=== PATIENT | female | born 1990 | race Caucasian/White ===

== ENCOUNTER 2023-05-26 21:35 | Emergency (ER) | payer SELFPAY ==
[2023-05-26 21:38] VITALS: BP 132/99; PULSE 121; RESP 20; TEMP 36.8; O2SAT 100; BMI 38.0
[2023-05-26 22:00] VITALS: BP 134/90; PULSE 110; O2SAT 99
[2023-05-26 22:30] VITALS: BP 140/86; PULSE 104; O2SAT 98
--- NOTE | 2023-05-26 22:50 | PC.NURSE ---
Dr. Joyner in room
[2023-05-26 22:57] VITALS: PULSE 95
--- NOTE | 2023-05-26 22:57 | XR_ITS ---
PROCEDURE INFORMATION: Exam: XR Chest Exam date and time: 05/26/2023 11:22 PM Age: 32 years old Clinical indication: Sternal or substernal pain; Additional info: Chest pain TECHNIQUE: Imaging protocol: Radiologic exam of the chest. Views: 1 view. COMPARISON: No relevant prior studies available. FINDINGS: Lungs: Unremarkable. No consolidation. Pleural spaces: Unremarkable. No pleural effusion. No pneumothorax. Heart/Mediastinum: Unremarkable. No cardiomegaly. Bones/joints: Unremarkable. IMPRESSION: No acute findings.
--- NOTE | 2023-05-26 22:57 | [facility].EDGENADL ---
Discharge Plan Disposition Patient Disposition: Home, Self-Care Referrals Follow up/Referrals: Provider,Referral, [Primary Care Provider] - See instructions Activity Restrictions/Add. Instructions Additional Instructions/Restrictions: Please follow-up with your primary care provider. Please return to the emergency department if you develop any new or worsening symptoms or become concerned for your health. Clinical Impressions Clinical Impression: Chest pain, Marijuana use Discharge ED Provider: Ra Joyner General Adult HPI <Ra Joyner MD - Last Filed: 05/26/23 23:09> General Chief complaint: Allergic Reaction Stated complaint: numbness, tingling Time Seen by Provider: 05/26/23 22:00 Mode of Arrival: Ambulatory Source of Information: Patient Limitations: No Limitations Description of Symptoms (Recalled from ER Triage Doc. by RN): pt states she smokes a joint from a stranger today at 1530 at 1800 tonight pt began to feel tingling all over and has a knot on left hand. RN notes no obvious rash or deformities. pt states she is worried it was laced with something. pt is in no obvious distress and vitals are WNL History of Present Illness HPI narrative: Patient is a 32-year-old female with no pertinent past medical history who presents to the emergency department for evaluation of substance ingestion and chest tightness. History is obtained by patient at bedside. Late this afternoon patient smoked marijuana which was obtained by an unknown individual, she is worried it is laced with something as she developed a transient rash over her hand and a knot in her left hand as well as chest tightness and substernal chest pain. She looked in her symptoms online and is worried that it may be laced with bug spray. No other acute complaints at this time. Related Data Allergies Allergy/AdvReac Type Severity Reaction Status Date / Time No Known Allergies Allergy Verified 05/26/23 22:58 PFSH <Ra Joyner MD - Last Filed: 05/26/23 23:09> [facility] Disclaimer: The information contained in this section may have been updated after the patient was seen, as this information can be updated by other users. Social History (Updated 05/26/23 @ 23:09 by Ra Joyner MD) Smoking Status: Current every day smoker alcohol intake: never current occupational status: other Travel in the last 8 weeks: None <Ra Joyner MD - Last Filed: 05/26/23 23:09> ROS Obtained: Yes Systems reviewed as appropriate & no additional complaints except as documented Physical Exam <Ra Joyner MD - Last Filed: 05/26/23 23:09> General General appearance: alert and in no apparent distress Head Head exam: atraumatic and normocephalic Eye Eye exam: Present PERRL and EOMI ENT ENT exam: Present mucous membranes moist Neck Neck exam: Present normal inspection Chest Chest inspection: Present normal inspection and symmetric chest wall rise Respiratory Respiratory exam: Present normal lung sounds bilaterally; Absent respiratory distress or wheezes Cardiovascular Cardiovascular exam: Present regular rate and normal rhythm Abdominal Exam Abdominal exam: Present soft; Absent tenderness Extremities Exam Extremities exam: Present normal inspection and other (No rash bilateral palms, no palpable subcutaneous nodules or masses in the bilateral hands.) Neurological Exam Neurological exam: Present alert and oriented X3 Psychiatric Psychiatric exam: Present normal affect Skin Skin exam: Present warm and dry Medical Decision Making <Ra Joyner MD - Last Filed: 05/26/23 23:09> Florian Inquiry Pt receiving controlled substance: No Vital Signs: 05/26/23 21:38 05/26/23 22:00 05/26/23 22:57 Temperature 98.2 F Temperature Source Oral Pulse Rate 110 H 95 H Pulse Rate [Right Radial] 121 H Respiratory Rate 20 Blood Pressure 134/90 Blood Pressure [Right Arm] 132/99 H Blood Pressure Mean Blood Pressure Mean [Ri
[2023-05-26 23:00] VITALS: BP 125/87; PULSE 101; O2SAT 98
[2023-05-26 23:30] VITALS: BP 124/78
[2023-05-26 23:43] LABS: Basophils # 0.1 K/mm3 (0-0.2); Basophils % 0.6 % (0.1-2.0); Eosinophils # 0.1 K/mm3 (0.0-0.4); Eosinophils % 0.7 % (0.1-12.0); Hematocrit 45.6 % (37.0-47.0); Hemoglobin 15.5 g/dL (12.2-16.2); Lymphocytes # 2.7 K/mm3 (0.7-4.5); Lymphocytes % 19.2 % (10-50); Mean Corpuscular HGB Conc 33.9 g/dL (31.8-35.4); Mean Corpuscular Hemoglobin 28.7 pg (27.0-31.2); Mean Corpuscular Volume 84.7 fl (81-99); Mean Platelet Volume 7.1 fl (7.4-10.4); Monocytes # 0.5 K/mm3 (0.1-1.0); Monocytes % 3.3 % (1.7-9.3); Neutrophils # 10.6 K/mm3 (1.8-7.8); Neutrophils % 76.2 % (37.0-80.0); Platelet Count 429 K/mm3 (142-424); Red Blood Count 5.38 M/mm3 (4.20-5.40); Red Cell Distribution Width 12.6 % (11.5-17.5); White Blood Count 13.9 K/mm3 (4.8-10.8)
[2023-05-26 23:51] LABS: Anion Gap 10.9 mEq/L (5-15); Blood Urea Nitrogen 8 mg/dl (7-17); Calcium 8.8 mg/dl (8.4-10.2); Carbon Dioxide 22 mmol/L (22.0-30.0); Chloride 105 mmol/L (98-107); Creatinine Clearance Estimated 179 mL/min (50-200); Estimated Glomerular Filt Rate 98 ml/min (>60); GFR (African American) 118 ML/MIN (>60); Glucose 98 mg/dl (74-100); Potassium 3.9 mmoL/L (3.5-5.1); Sodium 134 mmol/L (136-145)
[2023-05-27 00:06] LABS: Troponin I < 0.01 ng/ml (0.00-0.034)
[2023-05-27 00:25] VITALS: BP 130/70; PULSE 90; RESP 20; TEMP 36.7; O2SAT 95
== END 2023-05-27 00:29 | disposition home or self-care (01) ==
PROVIDERS: Emergency Provider Emergency Medicine
DX: R07.9 Chest pain, unspecified (principal); F12.90 Cannabis use, unspecified, uncomplicated; F17.200 Nicotine dependence, unspecified, uncomplicated
CPT/HCPCS: 71045; 80048; 84484; 85025; 99285